=== PATIENT | female | born 1955 | race Caucasian/White ===

== ENCOUNTER 2017-01-06 12:48 | Emergency (ER) | payer OTHER ==
[~2017-01-06] VITALS: Ht 162.6 cm; Wt 68.0 kg
[2017-01-06 13:01] VITALS: BP 149/77; PULSE 68; RESP 16; TEMP 98; O2SAT 99
[2017-01-06 13:04] VITALS: RESP 16; O2SAT 98
[2017-01-06] MEDS ORDERED: LISI10TA3 PO (13:04)
[2017-01-06] MEDS ORDERED: DONE5TAB7 PO (13:04)
[2017-01-06] MEDS ORDERED: BACI500O9 TOPICAL (13:04)
[2017-01-06] MEDS ORDERED: DIVA250T PO (13:04)
--- NOTE | 2017-01-06 13:09 | PD ---
HPI Chief Complaint: Syncope/Near-Syncope Time Seen by Provider: 13:02 Travel History International Travel<30 days: No Contact w/Intl Traveler<30days: No Traveled to known affect area: No History of Present Illness HPI 61-year-old female complaining of syncope. Patient states that [place] [employer] [place] this [place]. Patient states that she was bending over looking at something and she passed out completely. Patient does not know how long she passed out. Patient denies any headache. Patient denies any visual change. Patient denies any neck pain. Patient denies any chest pain or shortness of breath. Patient denies abdominal pain. Patient denies any focal weakness or numbness of extremity. Patient states that she has history of recurrent lacking out. Patient had been seen by neurologist workup has been negative so far. Patient states that she has been eating well. Patient denies any alcohol or drug abuse. PFSH Social History Tobacco Use: No Allergies-Medications (Allergen,Severity, Reaction): Coded Allergies: nickel (Verified Allergy, Mild, Rash, 01/06/17) latex (Verified Allergy, Unknown, 01/06/17) Reported Meds & Prescriptions Reported Meds & Active Scripts Active Reported Bacitracin Topical 500 Unit/Gm Oint 1 Applic TOPICAL DAILY Divalproex DR (Divalproex Sodium) 250 Mg Tabdr 250 Mg PO HS Donepezil 5 Mg Tab 5 Mg PO HS Lisinopril 10 Mg Tab 10 Mg PO DAILY Review of Systems General / Constitutional: No: Fever Eyes: No: Visual changes HENT: No: Headaches Cardiovascular: No: Chest Pain or Discomfort Respiratory: No: Shortness of Breath Gastrointestinal: No: Abdominal Pain Genitourinary: No: Dysuria Musculoskeletal: No: Pain Skin: No Rash Neurologic: Positive: Syncope, No: Weakness Psychiatric: No: Depression Endocrine: No: Polydipsia Hematologic/Lymphatic: No: Easy Bruising Physical Exam Narrative GENERAL: Well-nourished, well-developed patient. SKIN: Focused skin assessment warm/dry. HEAD: Normocephalic. EYES: No scleral icterus. No injection or drainage. Pupils 2 mm equal reactive. NECK: Supple, trachea midline. No JVD or lymphadenopathy. CARDIOVASCULAR: Regular rate and rhythm without murmurs, gallops, or rubs. RESPIRATORY: Breath sounds equal bilaterally. No accessory muscle use. GASTROINTESTINAL: Abdomen soft, non-tender, nondistended. MUSCULOSKELETAL: No cyanosis, or edema. BACK: Nontender without obvious deformity. No CVA tenderness. Neurologic exam normal. Data Data Last Documented VS Vital Signs Date Time Temp Pulse Resp B/P (MAP) Pulse Ox O2 Delivery O2 Flow Rate FiO2 01/06/17 15:25 01/06/17 13:18 68 16 78 16 79 16 01/06/17 13:05 98 Room Air 01/06/17 13:01 98.0 Orders Orders Electrocardiogram (01/06/17 13:02) Complete Blood Count With Diff (01/06/17 13:02) Basic Metabolic Panel (Bmp) (01/06/17 13:02) Iv Access Insert/Monitor (01/06/17 13:02) Ecg Monitoring (01/06/17 13:02) Oximetry (01/06/17 13:02) Ed Discharge Order (01/06/17 14:16) Labs Laboratory Tests Test 01/06/17 13:10 White Blood Count 8.8 TH/MM3 Red Blood Count 4.77 MIL/MM3 Hemoglobin 13.9 GM/DL Hematocrit 41.7 % Mean Corpuscular Volume 87.3 FL Mean Corpuscular Hemoglobin 29.1 PG Mean Corpuscular Hemoglobin Concent 33.3 % Red Cell Distribution Width 13.6 % Platelet Count 378 TH/MM3 Mean Platelet Volume 7.3 FL Neutrophils (%) (Auto) 66.8 % Lymphocytes (%) (Auto) 21.9 % Monocytes (%) (Auto) 8.7 % Eosinophils (%) (Auto) 1.9 % Basophils (%) (Auto) 0.7 % Neutrophils # (Auto) 5.9 TH/MM3 Lymphocytes # (Auto) 1.9 TH/MM3 Monocytes # (Auto) 0.8 TH/MM3 Eosinophils # (Auto) 0.2 TH/MM3 Basophils # (Auto) 0.1 TH/MM3 CBC Comment DIFF FINAL Differential Comment Blood Urea Nitrogen 13 MG/DL Creatinine 0.86 MG/DL Random Glucose 87 MG/DL Calcium Level 8.4 MG/DL Sodium Level 142 MEQ/L Potassium Level 3.6 MEQ/L Chloride Level 108 MEQ/L Carbon Dioxide Level 27.1 MEQ/L Anion Gap 7 MEQ/L Estimat Glomerular Filtration Rate 67 ML/MIN MDM Medical Decision Making Medical Screen Exam Complete: Yes Emergency Medical Condition: Yes Interpretation(s) 14 10 PM. CBC within normal limit. BMP within normal limit. Calcium 8.4. Differential Diagnosis Differential diagnosis including vasovagal reaction, TIA, CVA, likely imbalance , dehydration, seizure. Narrative Course 61-year-old female with syncope. History of recurrent blacking out. Patient has been seen by neurologist without etiology of her recurrent conditions. Diagnosis Primary Impression: Syncope Qualified Codes: R55 - Syncope and collapse Patient Instructions: General Instructions Additional Instructions: Follow-up with neurologist. Med/Other Pt SpecificInfo: No Change to Meds Disposition: 01 DISCHARGE HOME Condition: Stable Javon Rollins MD Jan 06, 2017 13:09
[2017-01-06 13:18] VITALS: BP_SYST 130; BP_SYST 133; BP_SYST 135; BP_DIAS 73; BP_DIAS 76; BP_DIAS 77; RESP 16
[2017-01-06 13:21] LABS: AUTOMATED NEUTROPHIL # 5.9 TH/MM3 (1.8-7.7); BASOPHIL # 0.1 TH/MM3 (0-0.2); BASOPHIL % 0.7 % (0.0-2.0); EOSINOPHIL # 0.2 TH/MM3 (0-0.4); EOSINOPHIL % 1.9 % (0.0-4.0); HEMATOCRIT 41.7 % (35.0-46.0); HEMO FLAGS DIFF FINAL; LYMPH % 21.9 % (9.0-44.0); LYMPHOCYTE # 1.9 TH/MM3 (1.0-4.8); MEAN CELL VOLUME 87.3 FL (80.0-100.0); MEAN CORPUSCULAR HEMOGLOBIN 29.1 PG (27.0-34.0); MEAN CORPUSCULAR HGB CONC 33.3 % (32.0-36.0); MONO % 8.7 % (0.0-8.0); NEUT % 66.8 % (16.0-70.0); PLATELET COUNT 378 TH/MM3 (150-450); RED BLOOD COUNT 4.77 MIL/MM3 (4.00-5.30); RED CELL DISTRIBUTION WIDTH 13.6 % (11.6-17.2); WHITE BLOOD COUNT 8.8 TH/MM3 (4.0-11.0)
[2017-01-06 13:31] LABS: BICARBONATE 27.1 MEQ/L (21.0-32.0); POTASSIUM 3.6 MEQ/L (3.5-5.1)
--- NOTE | 2017-01-06 23:43 | EKG ---
Date Performed: 01/06/2017 Time Performed: 12:57:16 PTAGE: 61 years EKG: Sinus rhythm LOW QRS VOLTAGE IN PRECORDIAL LEADS BORDERLINE ECG NO PREVIOUS TRACING DOCTOR: Jamel Michele Interpretating Date/Time 01/06/2017 23:43:11
== END 2017-01-06 15:26 | disposition home or self-care (01) ==
LOC: NEPE 12:48
DX: R55 Syncope and collapse (principal); Z79.899 Other long term (current) drug therapy
CPT/HCPCS: 80048; 85025; 93005; 99285